=== PATIENT | male | born 1960 | race African-American/Black ===

== ENCOUNTER 2017-03-20 10:45 | Inpatient (IN) | payer OTHER ==
[2017-03-20 11:29] VITALS: BMI 33.0
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
[2017-03-20] MEDS ORDERED: MAG HYDROX/AL HYDROX/SIMETH 30 ML UNIT-DOSE CUP PO PRN (13:23)
[2017-03-20] MEDS ORDERED: IBUPROFEN 400 MG TABLET (FP) PO PRN (13:23)
[2017-03-20] MEDS ORDERED: MENTHOL/PHENOL 1 EACH UD MM PRN (13:23)
[2017-03-20] MEDS ORDERED: ACETAMINOPHEN 325 MG TABLET (FP) PO PRN (13:23)
[2017-03-20] MEDS ORDERED: LOPERAMIDE HCL 2 MG CAPSULE PO PRN (13:23)
[2017-03-20] MEDS ORDERED: hydrOXYzine PAMOATE 50 MG CAPSULE (FP) PO PRN (13:23)
[2017-03-20] MEDS ORDERED: MAGNESIUM HYDROX 2400MG/30ML ORAL SUSPENSION 30 ML CUP PO PRN (13:23)
[2017-03-20] MEDS ORDERED: P-EPHED 60MG/TRIPROLIDI 2.5MG TABLET PO PRN (13:23)
[2017-03-20] MEDS ORDERED: guaiFENesin/D-METHORPHAN HB 10 ML UNIT-DOSE CUPS PO PRN (13:23)
[2017-03-20] MEDS ORDERED: MAGNESIUM CITRATE 300 ML BOTTLE PO PRN (13:23)
[2017-03-20] MEDS ORDERED: PT OWN MED DRAWER 7, Y5N ONE ×2 (16:58→21:15)
[2017-03-20 18:04] LABS: MCH 25.1 pg (25.7-33.7); MCHC 31.7 g/dl (32.0-35.9); MEAN CELL VOLUME 79.1 fl (80-96); MEAN PLT VOLUME 8.7 fl (7.5-11.1); PLATELET COUNT 263 K/MM3 (134-434); RDW 15.9 % (11.9-15.9); WHITE BLOOD COUNT 6.1 K/mm3 (4.0-10.0)
[2017-03-20 18:39] LABS: URINE APPEARANCE CLEAR; URINE BILIRUBIN NEGATIVE (NEGATIVE); URINE BLOOD NEGATIVE (NEGATIVE); URINE COLOR LTYELLOW; URINE GLUCOSE (UA) NEGATIVE (NEGATIVE); URINE KETONE NEGATIVE (NEGATIVE); URINE LEUK ESTERASE NEGATIVE (NEGATIVE); URINE NITRITE NEGATIVE (NEGATIVE); URINE PROTEIN NEGATIVE (NEGATIVE); URINE UROBILINOGEN NEGATIVE E.U./dl (0.2-1.0)
[2017-03-20 18:47] LABS: ALBUMIN 3.6 g/dl (3.4-5.0); BILIRUBIN,TOTAL 0.8 mg/dL (0.2-1.0); CALCIUM 9.1 mg/dL (8.5-10.1); COCKROFT - GAULT 95.62; CREATININE 1.4 mg/dL (0.7-1.3); TOT PROT 7.7 g/dl (6.4-8.2)
[2017-03-20] MEDS: LISINOPRIL 20 MG PO SCH (21:15)
[2017-03-20] MEDS: THIAMINE HCL 100 MG TABLET (FP) PO SCH (21:15)
[2017-03-20] MEDS: LEVETIRACETAM 1000 MG PO SCH (21:15)
[2017-03-20] MEDS ORDERED: LEVETIRACETAM 1000 MG PO SCH (22:00)
[2017-03-21] MEDS: RITONAVIR 100 MG TABLET PO SCH (07:28)
[2017-03-21] MEDS: PATIENT'S OWN MEDICATION (NON-FORMULARY) (Emtricitabine/Tenofov Alafenam [Descovy 200-25 M PO SCH (07:28)
[2017-03-21] MEDS: ATAZANAVIR SO4 300 MG CAPSULE PO SCH (07:28)
[2017-03-21] MEDS ORDERED: PT OWN MED DRAWER 7, Y5N ONE ×3 (09:14→21:24)
[2017-03-21] MEDS: ASPIRIN COATED 81 MG TABLET.EC PO SCH (11:22)
[2017-03-21] MEDS: PRENATAL VITAMINS W/ FOLIC ACID TABLET (FP) PO SCH (11:22)
[2017-03-21] MEDS: LISINOPRIL 20 MG PO SCH ×2 (11:22→21:18)
--- NOTE | 2017-03-21 11:59 | EKG ---
Test Reason : Blood Pressure : / mmHG Vent. Rate : 069 BPM Atrial Rate : 069 BPM P-R Int : 192 ms QRS Dur : 108 ms QT Int : 386 ms P-R-T Axes : 057 054 044 degrees QTc Int : 413 ms NORMAL SINUS RHYTHM NORMAL ECG NO PREVIOUS ECGS AVAILABLE Confirmed by RAYNA POPE, KARTHIK ([id number]) on 03/21/2017 11:58:53 AM Referred By: Confirmed By:KARTHIK WAY MD
--- NOTE | 2017-03-21 14:23 | HP ---
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 Medical History: BA,HIV+,seizure disorder,HTN Psychiatric History: denies Physical/Sexual Abuse/Trauma History: denies Vital Signs: Vital Signs - 24 hr 03/20/17 03/21/17 03/21/17 21:15 00:30 03:30 Temperature Pulse Rate 79 Respiratory 18 18 Rate Blood Pressure 133/80 03/21/17 03/21/17 07:16 10:14 Temperature 97.7 F Pulse Rate 73 80 Respiratory 18 18 Rate Blood Pressure 125/88 134/78 Allergies/Adverse Reactions: Allergies Allergy/AdvReac Type Severity Reaction Status Date / Time Penicillins AdvReac Severe Hives Verified 03/20/17 12:19 Concur with the findings of this exam: Yes - Substance Abuse/Tx History Hx Alcohol Use: Yes (reports drinking since school age,cognac a fwe times a week ) Hx Substance Use: Yes (cocaine since 18 yo,) Substance Use Type: Alcohol, Cocaine Hx Substance Use Treatment: Yes (completed this program in February 2012) - Admission Criteria Previous failed treatment: Yes Poor recovery environment: Yes Comorbidities: Yes Lacks judgement: Yes Mental Status Exam - Mental Status Exam Alert and Oriented to: Time, Place, Person Cognitive Function: Grossly Intact Patient Appearance: Well Groomed Mood: Euthymic Affect: Mood Congruent Patient Behavior: Cooperative Speech Pattern: Clear Voice Loudness: Normal Thought Process: Goal Oriented Thought Disorder: Not Present Hallucinations: Denies Suicidal Ideation: Denies Homicidal Ideation: Denies Insight/Judgement: Fair Sleep: Well Appetite: Good Muscle strength/Tone: Normal Gait/Station: Normal Psychiatric Findings - Problem List ([place] 1, 2,3) (1) Asthma Current Visit: Yes Status: Chronic Qualifiers: Asthma severity: mild intermittent Asthma complication type: uncomplicated Qualified Code(s): J45.20 - Mild intermittent asthma, uncomplicated (2) Crack cocaine use Current Visit: Yes Status: Chronic (3) HIV (human immunodeficiency virus infection) Current Visit: Yes Status: Chronic (4) Hypertension Current Visit: Yes Status: Chronic Qualifiers: Hypertension type: essential hypertension Qualified Code(s): I10 - Essential (primary) hypertension (5) Seizure disorder Current Visit: Yes Status: Chronic - Initial Treatment Plan Initial Treatment Plan: will monitor progress.
[2017-03-21] MEDS: THIAMINE HCL 100 MG TABLET (FP) PO SCH (21:18)
[2017-03-21] MEDS: LEVETIRACETAM 1000 MG PO SCH (21:18)
[2017-03-22] MEDS: PATIENT'S OWN MEDICATION (NON-FORMULARY) (Emtricitabine/Tenofov Alafenam [Descovy 200-25 M PO SCH (07:11)
[2017-03-22] MEDS: RITONAVIR 100 MG TABLET PO SCH (07:11)
[2017-03-22] MEDS: ATAZANAVIR SO4 300 MG CAPSULE PO SCH (07:12)
[2017-03-22] MEDS: LISINOPRIL 20 MG PO SCH ×2 (09:54→21:44)
[2017-03-22] MEDS: ASPIRIN COATED 81 MG TABLET.EC PO SCH (09:54)
[2017-03-22] MEDS: PRENATAL VITAMINS W/ FOLIC ACID TABLET (FP) PO SCH (09:56)
--- NOTE | 2017-03-22 15:03 | PN ---
S Progress Note Note: PATIENT WAS TREATED FOR SYPHILIS BEFORE,MEDICATIONS CHANGED TO SPECIFIC TIME PATIENT'S REQUEST
[2017-03-22] MEDS: LEVETIRACETAM 1000 MG PO SCH (21:22)
[2017-03-22] MEDS: THIAMINE HCL 100 MG TABLET (FP) PO SCH (21:22)
[2017-03-22] MEDS ORDERED: PT OWN MED DRAWER 7, Y5N ONE (21:50)
[2017-03-22] MEDS: diphenhydrAMINE HCL 50 MG CAPSULE PO PRN (21:50)
[2017-03-23] MEDS: RITONAVIR 100 MG TABLET PO SCH (06:26)
[2017-03-23] MEDS: PATIENT'S OWN MEDICATION (NON-FORMULARY) (Emtricitabine/Tenofov Alafenam [Descovy 200-25 M PO SCH (06:27)
[2017-03-23] MEDS: ATAZANAVIR SO4 300 MG CAPSULE PO SCH (06:27)
[2017-03-23] MEDS: LISINOPRIL 20 MG PO SCH ×2 (06:27→21:37)
[2017-03-23] MEDS: HYDROCHLOROTHIAZIDE 25 MG TABLET (FP) PO SCH (06:27)
[2017-03-23] MEDS: ASPIRIN COATED 81 MG TABLET.EC PO SCH (06:28)
[2017-03-23] MEDS: PRENATAL VITAMINS W/ FOLIC ACID TABLET (FP) PO SCH (10:30)
[2017-03-23] MEDS ORDERED: PT OWN MED DRAWER 7, Y5N ONE ×2 (20:32→22:13)
[2017-03-23] MEDS: THIAMINE HCL 100 MG TABLET (FP) PO SCH (21:36)
[2017-03-23] MEDS: LEVETIRACETAM 1000 MG PO SCH (21:37)
[2017-03-23] MEDS: diphenhydrAMINE HCL 50 MG CAPSULE PO PRN (23:37)
[2017-03-24] MEDS ORDERED: PT OWN MED DRAWER 7, Y5N ONE ×2 (05:14→21:09)
[2017-03-24] MEDS: ASPIRIN COATED 81 MG TABLET.EC PO SCH (06:13)
[2017-03-24] MEDS: HYDROCHLOROTHIAZIDE 25 MG TABLET (FP) PO SCH (06:13)
[2017-03-24] MEDS: PATIENT'S OWN MEDICATION (NON-FORMULARY) (Emtricitabine/Tenofov Alafenam [Descovy 200-25 M PO SCH (06:13)
[2017-03-24] MEDS: LISINOPRIL 20 MG PO SCH ×2 (06:14→21:09)
[2017-03-24] MEDS: ATAZANAVIR SO4 300 MG CAPSULE PO SCH (06:14)
[2017-03-24] MEDS: RITONAVIR 100 MG TABLET PO SCH (06:14)
[2017-03-24] MEDS: PRENATAL VITAMINS W/ FOLIC ACID TABLET (FP) PO SCH (10:10)
[2017-03-24] MEDS: THIAMINE HCL 100 MG TABLET (FP) PO SCH (21:08)
[2017-03-24] MEDS: LEVETIRACETAM 1000 MG PO SCH (21:09)
[2017-03-24] MEDS: diphenhydrAMINE HCL 50 MG CAPSULE PO PRN (21:40)
[2017-03-25] MEDS ORDERED: PT OWN MED DRAWER 7, Y5N ONE ×2 (05:35→21:18)
[2017-03-25] MEDS: HYDROCHLOROTHIAZIDE 25 MG TABLET (FP) PO SCH (06:51)
[2017-03-25] MEDS: RITONAVIR 100 MG TABLET PO SCH (06:51)
[2017-03-25] MEDS: ATAZANAVIR SO4 300 MG CAPSULE PO SCH (06:51)
[2017-03-25] MEDS: PATIENT'S OWN MEDICATION (NON-FORMULARY) (Emtricitabine/Tenofov Alafenam [Descovy 200-25 M PO SCH (06:51)
[2017-03-25] MEDS: ERGOCALCIFEROL (VITAMIN D2) 50,000 UNIT CAPSULE (FP) PO SCH (06:51)
[2017-03-25] MEDS: LISINOPRIL 20 MG PO SCH ×2 (06:51→21:17)
[2017-03-25] MEDS: ASPIRIN COATED 81 MG TABLET.EC PO SCH (06:51)
[2017-03-25] MEDS: PRENATAL VITAMINS W/ FOLIC ACID TABLET (FP) PO SCH (09:32)
[2017-03-25] MEDS: LEVETIRACETAM 1000 MG PO SCH (21:17)
[2017-03-25] MEDS: THIAMINE HCL 100 MG TABLET (FP) PO SCH (21:17)
[2017-03-25] MEDS: diphenhydrAMINE HCL 50 MG CAPSULE PO PRN (21:18)
[2017-03-26] MEDS ORDERED: PT OWN MED DRAWER 7, Y5N ONE ×3 (05:43→21:49)
[2017-03-26] MEDS: ASPIRIN COATED 81 MG TABLET.EC PO SCH (06:14)
[2017-03-26] MEDS: LISINOPRIL 20 MG PO SCH ×2 (06:14→21:15)
[2017-03-26] MEDS: RITONAVIR 100 MG TABLET PO SCH (06:14)
[2017-03-26] MEDS: HYDROCHLOROTHIAZIDE 25 MG TABLET (FP) PO SCH (06:14)
[2017-03-26] MEDS: PATIENT'S OWN MEDICATION (NON-FORMULARY) (Emtricitabine/Tenofov Alafenam [Descovy 200-25 M PO SCH (06:14)
[2017-03-26] MEDS: ATAZANAVIR SO4 300 MG CAPSULE PO SCH (06:14)
[2017-03-26] MEDS: PRENATAL VITAMINS W/ FOLIC ACID TABLET (FP) PO SCH (09:54)
[2017-03-26] MEDS: LEVETIRACETAM 1000 MG PO SCH (21:15)
[2017-03-26] MEDS: diphenhydrAMINE HCL 50 MG CAPSULE PO PRN (21:15)
[2017-03-26] MEDS: THIAMINE HCL 100 MG TABLET (FP) PO SCH (21:16)
[2017-03-27] MEDS: HYDROCHLOROTHIAZIDE 25 MG TABLET (FP) PO SCH (06:05)
[2017-03-27] MEDS: ATAZANAVIR SO4 300 MG CAPSULE PO SCH (06:05)
[2017-03-27] MEDS: RITONAVIR 100 MG TABLET PO SCH (06:05)
[2017-03-27] MEDS: PATIENT'S OWN MEDICATION (NON-FORMULARY) (Emtricitabine/Tenofov Alafenam [Descovy 200-25 M PO SCH (06:05)
[2017-03-27] MEDS: LISINOPRIL 20 MG PO SCH ×2 (06:08→21:24)
[2017-03-27] MEDS: ASPIRIN COATED 81 MG TABLET.EC PO SCH (06:08)
[2017-03-27] MEDS ORDERED: ERGOCALCIFEROL (VITAMIN D2) 50,000 UNIT CAPSULE (FP) PO SCH (08:00)
[2017-03-27] MEDS: PRENATAL VITAMINS W/ FOLIC ACID TABLET (FP) PO SCH (09:42)
[2017-03-27] MEDS: diphenhydrAMINE HCL 50 MG CAPSULE PO PRN (21:24)
[2017-03-27] MEDS: THIAMINE HCL 100 MG TABLET (FP) PO SCH (21:24)
[2017-03-27] MEDS: LEVETIRACETAM 1000 MG PO SCH (21:24)
[2017-03-27] MEDS ORDERED: PT OWN MED DRAWER 7, Y5N ONE (21:25)
[2017-03-28] MEDS: ATAZANAVIR PO SCH (06:00)
[2017-03-28] MEDS: ASPIRIN COATED PO SCH (06:00)
[2017-03-28] MEDS: RITONAVIR 100 MG PO SCH (06:00)
[2017-03-28] MEDS: LISINOPRIL 20 MG PO SCH ×2 (06:00→21:03)
[2017-03-28] MEDS: PATIENT'S OWN MEDICATION (NON-FORMULARY) (Emtricitabine/Tenofov Alafenam [Descovy 200-25 M PO SCH (06:01)
[2017-03-28] MEDS: HYDROCHLOROTHIAZIDE 25 MG TABLET (FP) PO SCH (06:01)
[2017-03-28] MEDS: PRENATAL VITAMINS W/ FOLIC ACID TABLET (FP) PO SCH (10:00)
[2017-03-28] MEDS ORDERED: PT OWN MED DRAWER 7, Y5N ONE ×2 (20:43→21:58)
[2017-03-28] MEDS: THIAMINE HCL 100 MG TABLET (FP) PO SCH (21:01)
[2017-03-28] MEDS: diphenhydrAMINE HCL 50 MG CAPSULE PO PRN (21:02)
[2017-03-28] MEDS: LEVETIRACETAM 1000 MG PO SCH (21:02)
[2017-03-29] MEDS ORDERED: PT OWN MED DRAWER 7, Y5N ONE ×2 (05:08→19:17)
[2017-03-29] MEDS: HYDROCHLOROTHIAZIDE 25 MG TABLET (FP) PO SCH (06:01)
[2017-03-29] MEDS: ATAZANAVIR PO SCH (06:01)
[2017-03-29] MEDS: ASPIRIN COATED PO SCH (06:01)
[2017-03-29] MEDS: RITONAVIR 100 MG PO SCH (06:01)
[2017-03-29] MEDS: PATIENT'S OWN MEDICATION (NON-FORMULARY) (Emtricitabine/Tenofov Alafenam [Descovy 200-25 M PO SCH (06:01)
[2017-03-29] MEDS: LISINOPRIL 20 MG PO SCH ×2 (06:01→21:32)
[2017-03-29] MEDS: PRENATAL VITAMINS W/ FOLIC ACID TABLET (FP) PO SCH (10:19)
[2017-03-29] MEDS: LEVETIRACETAM 1000 MG PO SCH (21:31)
[2017-03-29] MEDS: THIAMINE HCL 100 MG TABLET (FP) PO SCH (21:32)
[2017-03-29] MEDS: diphenhydrAMINE HCL 50 MG CAPSULE PO PRN (21:32)
[2017-03-30] MEDS: ATAZANAVIR PO SCH (06:11)
[2017-03-30] MEDS: HYDROCHLOROTHIAZIDE 25 MG TABLET (FP) PO SCH (06:12)
[2017-03-30] MEDS: LISINOPRIL 20 MG PO SCH ×2 (06:12→21:18)
[2017-03-30] MEDS: PATIENT'S OWN MEDICATION (NON-FORMULARY) (Emtricitabine/Tenofov Alafenam [Descovy 200-25 M PO SCH (06:12)
[2017-03-30] MEDS: ASPIRIN COATED PO SCH (06:12)
[2017-03-30] MEDS: RITONAVIR 100 MG PO SCH (06:12)
[2017-03-30] MEDS: PRENATAL VITAMINS W/ FOLIC ACID TABLET (FP) PO SCH (10:02)
[2017-03-30] MEDS ORDERED: PT OWN MED DRAWER 7, Y5N ONE ×2 (20:30→21:59)
[2017-03-30] MEDS: diphenhydrAMINE HCL 50 MG CAPSULE PO PRN (21:16)
[2017-03-30] MEDS: LEVETIRACETAM 1000 MG PO SCH (21:16)
[2017-03-30] MEDS: THIAMINE HCL 100 MG TABLET (FP) PO SCH (21:16)
[2017-03-31] MEDS: ATAZANAVIR PO SCH (06:03)
[2017-03-31] MEDS: ASPIRIN COATED PO SCH (06:03)
[2017-03-31] MEDS: RITONAVIR 100 MG PO SCH (06:03)
[2017-03-31] MEDS: HYDROCHLOROTHIAZIDE 25 MG TABLET (FP) PO SCH (06:04)
[2017-03-31] MEDS: LISINOPRIL 20 MG PO SCH ×2 (06:04→21:31)
[2017-03-31] MEDS: PATIENT'S OWN MEDICATION (NON-FORMULARY) (Emtricitabine/Tenofov Alafenam [Descovy 200-25 M PO SCH (06:04)
[2017-03-31] MEDS: PRENATAL VITAMINS W/ FOLIC ACID TABLET (FP) PO SCH (10:17)
[2017-03-31] MEDS ORDERED: PT OWN MED DRAWER 7, Y5N ONE ×2 (19:50→21:38)
[2017-03-31] MEDS: diphenhydrAMINE HCL 50 MG CAPSULE PO PRN (21:30)
[2017-03-31] MEDS: THIAMINE HCL 100 MG TABLET (FP) PO SCH (21:30)
[2017-03-31] MEDS: LEVETIRACETAM 1000 MG PO SCH (21:31)
[2017-04-01] MEDS: ASPIRIN COATED PO SCH (06:10)
[2017-04-01] MEDS: ATAZANAVIR PO SCH (06:10)
[2017-04-01] MEDS: ERGOCALCIFEROL (VITAMIN D2) 50,000 UNIT CAPSULE (FP) PO SCH (06:10)
[2017-04-01] MEDS: PATIENT'S OWN MEDICATION (NON-FORMULARY) (Emtricitabine/Tenofov Alafenam [Descovy 200-25 M PO SCH (06:11)
[2017-04-01] MEDS: LISINOPRIL 20 MG PO SCH ×2 (06:11→21:27)
[2017-04-01] MEDS: RITONAVIR 100 MG PO SCH (06:11)
[2017-04-01] MEDS: HYDROCHLOROTHIAZIDE 25 MG TABLET (FP) PO SCH (06:11)
[2017-04-01] MEDS: PRENATAL VITAMINS W/ FOLIC ACID TABLET (FP) PO SCH (09:59)
[2017-04-01] MEDS ORDERED: PT OWN MED DRAWER 7, Y5N ONE (20:58)
[2017-04-01] MEDS: diphenhydrAMINE HCL 50 MG CAPSULE PO PRN (21:26)
[2017-04-01] MEDS: THIAMINE HCL 100 MG TABLET (FP) PO SCH (21:27)
[2017-04-01] MEDS: LEVETIRACETAM 1000 MG PO SCH (21:27)
[2017-04-02] MEDS ORDERED: PT OWN MED DRAWER 7, Y5N ONE ×5 (05:13→21:44)
[2017-04-02] MEDS: RITONAVIR 100 MG PO SCH (07:35)
[2017-04-02] MEDS: LISINOPRIL 20 MG PO SCH ×2 (07:35→21:17)
[2017-04-02] MEDS: ATAZANAVIR PO SCH (07:35)
[2017-04-02] MEDS: ASPIRIN COATED PO SCH (07:35)
[2017-04-02] MEDS: PATIENT'S OWN MEDICATION (NON-FORMULARY) (Emtricitabine/Tenofov Alafenam [Descovy 200-25 M PO SCH (07:35)
[2017-04-02] MEDS: HYDROCHLOROTHIAZIDE 25 MG TABLET (FP) PO SCH (07:35)
[2017-04-02] MEDS: PRENATAL VITAMINS W/ FOLIC ACID TABLET (FP) PO SCH (10:15)
[2017-04-02] MEDS: LEVETIRACETAM 1000 MG PO SCH (21:17)
[2017-04-02] MEDS: diphenhydrAMINE HCL 50 MG CAPSULE PO PRN (21:17)
[2017-04-02] MEDS: THIAMINE HCL 100 MG TABLET (FP) PO SCH (21:17)
[2017-04-03] MEDS: ATAZANAVIR PO SCH (06:12)
[2017-04-03] MEDS: ASPIRIN COATED PO SCH (06:12)
[2017-04-03] MEDS: PATIENT'S OWN MEDICATION (NON-FORMULARY) (Emtricitabine/Tenofov Alafenam [Descovy 200-25 M PO SCH (06:12)
[2017-04-03] MEDS: RITONAVIR 100 MG PO SCH (06:12)
[2017-04-03] MEDS: LISINOPRIL 20 MG PO SCH ×2 (06:12→21:51)
[2017-04-03] MEDS: HYDROCHLOROTHIAZIDE 25 MG TABLET (FP) PO SCH (06:13)
[2017-04-03] MEDS: PRENATAL VITAMINS W/ FOLIC ACID TABLET (FP) PO SCH (10:00)
[2017-04-03] MEDS ORDERED: PT OWN MED DRAWER 7, Y5N ONE ×2 (20:46→22:01)
[2017-04-03] MEDS: LEVETIRACETAM 1000 MG PO SCH (21:50)
[2017-04-03] MEDS: diphenhydrAMINE HCL 50 MG CAPSULE PO PRN (21:51)
[2017-04-03] MEDS: THIAMINE HCL 100 MG TABLET (FP) PO SCH (21:51)
[2017-04-04] MEDS: HYDROCHLOROTHIAZIDE 25 MG TABLET (FP) PO SCH (06:09)
[2017-04-04] MEDS: ASPIRIN COATED PO SCH (06:10)
[2017-04-04] MEDS: RITONAVIR 100 MG PO SCH (06:10)
[2017-04-04] MEDS: ATAZANAVIR PO SCH (06:10)
[2017-04-04] MEDS: PATIENT'S OWN MEDICATION (NON-FORMULARY) (Emtricitabine/Tenofov Alafenam [Descovy 200-25 M PO SCH (06:10)
[2017-04-04] MEDS: LISINOPRIL 20 MG PO SCH ×2 (06:10→21:23)
[2017-04-04] MEDS: PRENATAL VITAMINS W/ FOLIC ACID TABLET (FP) PO SCH (10:17)
[2017-04-04] MEDS ORDERED: PT OWN MED DRAWER 7, Y5N ONE (20:23)
[2017-04-04] MEDS: THIAMINE HCL 100 MG TABLET (FP) PO SCH (21:22)
[2017-04-04] MEDS: diphenhydrAMINE HCL 50 MG CAPSULE PO PRN (21:22)
[2017-04-04] MEDS: LEVETIRACETAM 1000 MG PO SCH (21:23)
[2017-04-05] MEDS: HYDROCHLOROTHIAZIDE 25 MG TABLET (FP) PO SCH (06:16)
[2017-04-05] MEDS: ATAZANAVIR PO SCH (06:17)
[2017-04-05] MEDS: ASPIRIN COATED PO SCH (06:17)
[2017-04-05] MEDS: PATIENT'S OWN MEDICATION (NON-FORMULARY) (Emtricitabine/Tenofov Alafenam [Descovy 200-25 M PO SCH (06:17)
[2017-04-05] MEDS: RITONAVIR 100 MG PO SCH (06:17)
[2017-04-05] MEDS: LISINOPRIL 20 MG PO SCH ×2 (06:17→22:14)
[2017-04-05] MEDS: PRENATAL VITAMINS W/ FOLIC ACID TABLET (FP) PO SCH (09:58)
[2017-04-05] MEDS ORDERED: PT OWN MED DRAWER 7, Y5N ONE ×4 (15:16→21:50)
[2017-04-05] MEDS: LISINOPRIL 20 MG TABLET (FP) PO SCH (22:13)
[2017-04-05] MEDS: levETIRAcetam 500 MG TABLET (FP) PO SCH (22:14)
[2017-04-05] MEDS: THIAMINE HCL 100 MG TABLET (FP) PO SCH (22:14)
[2017-04-05] MEDS: LEVETIRACETAM 1000 MG PO SCH (22:14)
[2017-04-05] MEDS: diphenhydrAMINE HCL 50 MG CAPSULE PO PRN (22:14)
[2017-04-06] MEDS: HYDROCHLOROTHIAZIDE 25 MG TABLET (FP) PO SCH ×2 (06:16→08:08)
[2017-04-06] MEDS: PATIENT'S OWN MEDICATION (NON-FORMULARY) (Emtricitabine/Tenofov Alafenam [Descovy 200-25 M PO SCH (06:28)
[2017-04-06] MEDS: LISINOPRIL 20 MG PO SCH (06:29)
[2017-04-06] MEDS: ASPIRIN COATED PO SCH (07:04)
[2017-04-06] MEDS: ATAZANAVIR PO SCH (07:05)
[2017-04-06] MEDS: RITONAVIR 100 MG PO SCH (07:05)
[2017-04-06] MEDS: ATAZANAVIR SO4 300 MG CAPSULE PO SCH (08:07)
[2017-04-06] MEDS: RITONAVIR 100 MG TABLET PO SCH (08:09)
[2017-04-06] MEDS ORDERED: ERGOCALCIFEROL (VITAMIN D2) 50,000 UNIT CAPSULE (FP) PO SCH (10:00)
[2017-04-06] MEDS ORDERED: DESCOVY PO SCH (10:00)
[2017-04-06] MEDS: ASPIRIN 81 MG CHEWABLE TABLETS PO SCH (10:07)
[2017-04-06] MEDS: LISINOPRIL 20 MG TABLET (FP) PO SCH ×2 (10:07→21:02)
[2017-04-06] MEDS: METOPROLOL TARTRATE 50 MG TABLET (FP) PO SCH (10:07)
[2017-04-06] MEDS: PRENATAL VITAMINS W/ FOLIC ACID TABLET (FP) PO SCH (10:07)
[2017-04-06] MEDS: diphenhydrAMINE HCL 50 MG CAPSULE PO PRN (21:02)
[2017-04-06] MEDS: levETIRAcetam 500 MG TABLET (FP) PO SCH (21:02)
[2017-04-06] MEDS: THIAMINE HCL 100 MG TABLET (FP) PO SCH (21:02)
[2017-04-07] MEDS: HYDROCHLOROTHIAZIDE 25 MG TABLET (FP) PO SCH (06:29)
[2017-04-07] MEDS ORDERED: PT OWN MED DRAWER 7, Y5N ONE ×4 (07:49→15:57)
[2017-04-07] MEDS: PATIENT'S OWN MEDICATION (NON-FORMULARY) (Emtricitabine/Tenofov Alafenam [Descovy 200-25 M PO SCH (07:57)
[2017-04-07] MEDS: ATAZANAVIR SO4 300 MG CAPSULE PO SCH (08:55)
[2017-04-07] MEDS: RITONAVIR 100 MG TABLET PO SCH (08:55)
[2017-04-07] MEDS: ASPIRIN 81 MG CHEWABLE TABLETS PO SCH (09:05)
[2017-04-07] MEDS: LISINOPRIL 20 MG TABLET (FP) PO SCH ×2 (09:05→21:55)
[2017-04-07] MEDS: METOPROLOL TARTRATE 50 MG TABLET (FP) PO SCH (09:05)
[2017-04-07] MEDS: PRENATAL VITAMINS W/ FOLIC ACID TABLET (FP) PO SCH (09:05)
[2017-04-07] MEDS: levETIRAcetam 500 MG TABLET (FP) PO SCH (21:54)
[2017-04-07] MEDS: diphenhydrAMINE HCL 50 MG CAPSULE PO PRN (21:55)
[2017-04-07] MEDS: THIAMINE HCL 100 MG TABLET (FP) PO SCH (21:55)
[2017-04-08] MEDS ORDERED: PT OWN MED DRAWER 7, Y5N ONE (05:58)
[2017-04-08] MEDS: HYDROCHLOROTHIAZIDE 25 MG TABLET (FP) PO SCH (06:38)
[2017-04-08] MEDS: PATIENT'S OWN MEDICATION (NON-FORMULARY) (Emtricitabine/Tenofov Alafenam [Descovy 200-25 M PO SCH (06:38)
[2017-04-08] MEDS: ERGOCALCIFEROL (VITAMIN D2) 50,000 UNIT CAPSULE (FP) PO SCH (06:40)
[2017-04-08] MEDS: RITONAVIR 100 MG TABLET PO SCH (07:27)
[2017-04-08] MEDS: ATAZANAVIR SO4 300 MG CAPSULE PO SCH (07:28)
[2017-04-08] MEDS: METOPROLOL TARTRATE 50 MG TABLET (FP) PO SCH (09:58)
[2017-04-08] MEDS: ASPIRIN 81 MG CHEWABLE TABLETS PO SCH (09:58)
[2017-04-08] MEDS: LISINOPRIL 20 MG TABLET (FP) PO SCH ×2 (09:58→21:17)
[2017-04-08] MEDS: PRENATAL VITAMINS W/ FOLIC ACID TABLET (FP) PO SCH (09:58)
[2017-04-08] MEDS: THIAMINE HCL 100 MG TABLET (FP) PO SCH (21:16)
[2017-04-08] MEDS: levETIRAcetam 500 MG TABLET (FP) PO SCH (21:16)
[2017-04-08] MEDS: diphenhydrAMINE HCL 50 MG CAPSULE PO PRN (21:17)
[2017-04-09] MEDS: HYDROCHLOROTHIAZIDE 25 MG TABLET (FP) PO SCH (06:35)
[2017-04-09] MEDS: PATIENT'S OWN MEDICATION (NON-FORMULARY) (Emtricitabine/Tenofov Alafenam [Descovy 200-25 M PO SCH (06:35)
[2017-04-09] MEDS: RITONAVIR 100 MG TABLET PO SCH (07:06)
[2017-04-09] MEDS: ATAZANAVIR SO4 300 MG CAPSULE PO SCH (07:07)
--- NOTE | 2017-04-09 07:54 | PN ---
Psychiatric Progress Note Vital Signs: Vital Signs Period Temp Pulse Resp BP Sys/Echevarria Pulse Ox Last 24 Hr 98.3 F 78-103 18-20 110-131/69-82 Date of Session: 04/09/17 Chief Complaint:: Discharge Note HPI: Patient addressing Cocaine Dependence ROS: Asthma, HTN, HIV, Seizure Disorder Current Medications: Active Medications Generic Name Dose Route Start Last Admin Trade Name Freq PRN Reason Stop Dose Admin Acetaminophen 650 mg 03/20/17 13:23 Tylenol - PO Q4H PRN PAIN Al Hydroxide/Mg Hydroxide 30 ml 03/20/17 13:23 Mylanta Oral Suspension - PO Q6H PRN DYSPEPSIA Aspirin 81 mg 04/06/17 10:00 04/08/17 09:58 Asa - PO 81 mg DAILY URI Administration Atazanavir 300 mg 04/06/17 08:00 04/09/17 07:07 Reyataz - PO 300 mg DAILY@0800 URI Administration Diphenhydramine HCl 50 mg 03/20/17 13:23 04/08/17 21:17 Benadryl - PO 50 mg HSMR1 PRN Administration INSOMNIA Ergocalciferol 50,000 unit 03/25/17 06:00 04/08/17 06:40 Drisdol - PO 50,000 unit DAILEY@0600 URI Administration Eucalyptus/Menthol/Phenol/Sorbitol 1 each 03/20/17 13:23 Cepastat Lozenge - MM Q4H PRN SORE THROAT Guaifenesin 10 ml 03/20/17 13:23 Robitussin Dm - PO Q6H PRN COUGH Hydrochlorothiazide 50 mg 04/06/17 08:00 04/09/17 06:35 Hctz - PO 50 mg DAILY@0600 URI Administration Hydroxyzine Pamoate 50 mg 03/20/17 13:23 Vistaril - PO Q4H PRN AGITATION Ibuprofen 400 mg 03/20/17 13:23 Motrin - PO Q6H PRN SEVERE PAIN Levetiracetam 2,000 mg 04/05/17 22:00 04/08/17 21:16 Keppra - PO 2,000 mg HS URI Administration Lisinopril 20 mg 04/05/17 22:00 04/08/17 21:17 Prinivil PO 20 mg BID URI Administration Loperamide HCl 4 mg 03/20/17 13:23 Imodium - PO Q6H PRN DIARRHEA Magnesium Citrate 300 ml 03/20/17 13:23 Citroma - PO Q48H PRN CONSTIPATION Magnesium Hydroxide 30 ml 03/20/17 13:23 Milk Of Magnesia - PO DAILY PRN CONSTIPATION Metoprolol Tartrate 50 mg 04/06/17 10:00 04/08/17 09:58 Lopressor - PO 50 mg DAILY URI Administration Non-Formulary Medication 1 each 03/23/17 06:00 04/09/17 06:35 Emtricitabine/Tenofov Alafenam [Descovy 200-25 Mg Tablet] PO Not Given DAILY@0600 [facility] Multivit/Folic Acid/Iron 1 tab 03/21/17 10:00 04/08/17 09:58 Vitamins (Sjr) - PO 1 tab DAILY URI Administration Pseudoephedrine/Triprolidine 1 combo 03/20/17 13:23 Actifed - PO TID PRN NASAL CONGESTION Ritonavir 100 mg 04/06/17 08:00 04/09/17 07:06 Norvir - PO 100 mg DAILY@0800 URI Administration Thiamine HCl 100 mg 03/20/17 22:00 04/08/17 21:16 Vitamin B1 - PO 100 mg HS URI Administration Current Side Effect: No Lab tests ordered: Yes Lab tests reviewed: Yes Provider note:: Patient will complete this program on 04/10/17. He has met his treatment goals and will continue to address his issues in outpatient treatment at [facility]. He verbalized understanding of the negative consequences of his addiction and told health science writer that from his participation in this program he has learned that if he leaves drugs alone, he will be able to live life on life term and he also learned that he loves drugs but drugs don't give a damn about him. He is stable for discharge con 04/10/17 Total face to face time:: 35 Mental Status Exam - Mental Status Exam Alert and Oriented to: Time, Place, Person Cognitive Function: Fair Patient Appearance: Well Groomed Mood: Hopeful, Euthymic Affect: Appropriate Patient Behavior: Cooperative Speech Pattern: Clear Voice Loudness: Normal Thought Process: Intact, Goal Oriented Thought Disorder: Not Present Hallucinations: Denies Suicidal Ideation: Denies Homicidal Ideation: Denies Insight/Judgement: Fair Sleep: Well Appetite: Good Muscle strength/Tone: Normal Gait/Station: Normal Psychiatric Treatment Plan - Problem List (1) Cocaine dependence Current Visit: Yes (2) Asthma Current Visit: Yes Qualifiers: Asthma severity: mild intermittent Asthma complication type: uncomplicated Qualified Code(s): J45.20 - Mild intermittent asthma, uncomplicated (3) HIV (human immunodeficiency virus infection) Current Visit: Yes (4) Hypertension Current Visit: Yes Qualifiers: Hypertension type: essential hypertension Qualified Code(s): I10 - Essential (primary) hypertension (5) Seizure disorder Current Visit: Yes Initial treatment plan: Patient will be disharged tomorrow and referred to [facility]
[2017-04-09] MEDS ORDERED: PT OWN MED DRAWER 7, Y5N ONE ×2 (08:22→16:14)
[2017-04-09] MEDS: PRENATAL VITAMINS W/ FOLIC ACID TABLET (FP) PO SCH (10:06)
[2017-04-09] MEDS: METOPROLOL TARTRATE 50 MG TABLET (FP) PO SCH (10:07)
[2017-04-09] MEDS: ASPIRIN 81 MG CHEWABLE TABLETS PO SCH (10:07)
[2017-04-09] MEDS: LISINOPRIL 20 MG TABLET (FP) PO SCH ×2 (10:07→21:56)
[2017-04-09] MEDS: levETIRAcetam 500 MG TABLET (FP) PO SCH (21:56)
[2017-04-09] MEDS: THIAMINE HCL 100 MG TABLET (FP) PO SCH (21:56)
[2017-04-09] MEDS: diphenhydrAMINE HCL 50 MG CAPSULE PO PRN (21:56)
[2017-04-10] MEDS: HYDROCHLOROTHIAZIDE 25 MG TABLET (FP) PO SCH (06:04)
[2017-04-10] MEDS: PATIENT'S OWN MEDICATION (NON-FORMULARY) (Emtricitabine/Tenofov Alafenam [Descovy 200-25 M PO SCH (06:04)
[2017-04-10 06:45] VITALS: BP 120/68; PULSE 88; TEMP 98.2
[2017-04-10] MEDS: RITONAVIR 100 MG TABLET PO SCH (07:19)
[2017-04-10] MEDS: ATAZANAVIR SO4 300 MG CAPSULE PO SCH (07:19)
[2017-04-10] MEDS: PRENATAL VITAMINS W/ FOLIC ACID TABLET (FP) PO SCH (09:30)
[2017-04-10] MEDS: LISINOPRIL 20 MG TABLET (FP) PO SCH (09:30)
[2017-04-10] MEDS: METOPROLOL TARTRATE 50 MG TABLET (FP) PO SCH (09:31)
[2017-04-10] MEDS: ASPIRIN 81 MG CHEWABLE TABLETS PO SCH (09:31)
[2017-04-10] MEDS ORDERED: PT OWN MED DRAWER 7, Y5N ONE (09:34)
== END 2017-04-10 09:35 | disposition home or self-care (01) | DRG 772 ==
LOC: YASAS 10:45 → Y3W 12:44
PROVIDERS: ADMIT Psychiatry & Neurology Psychiatry; ATTEND Psychiatry & Neurology Psychiatry
PROC: HZ42ZZZ Group Counseling for Substance Abuse Treatment, Cognitive-Behavioral (ICD-10-PCS; principal; 2017-03-20)
DX: F14.20 Cocaine dependence, uncomplicated (principal); F17.299 Nicotine dependence, other tobacco product, with unspecified nicotine-induced disorders; J45.20 Mild intermittent asthma, uncomplicated; I10 Essential (primary) hypertension; Z21 Asymptomatic human immunodeficiency virus [HIV] infection status; G40.909 Epilepsy, unspecified, not intractable, without status epilepticus; Z87.438 Personal history of other diseases of male genital organs; E66.9 Obesity, unspecified; Z68.33 Body mass index [BMI] 33.0-33.9, adult
CPT/HCPCS: 36415; 80053; 81003; 85027; 86593; 86780; 93005; 93010